=== PATIENT | male | born 1985 | race Caucasian/White ===

== ENCOUNTER 2020-02-09 17:27 | Emergency (ER) | payer SELFPAY ==
[2020-02-09] MEDS ORDERED: Lidocaine 1% with EPINEPHrine 1:100,000 20 ML MDV ONE (17:42)
[2020-02-09] MEDS ORDERED: Lidocaine 1% with EPINEPHrine 1:100,000 20 ML MDV INJECT ONE (17:50)
[2020-02-09] MEDS ORDERED: Bacitracin/Neomycin/Polymyxin B Oint 28.4 GM Tube ONE (18:35)
--- NOTE | 2020-02-09 18:48 | EDM.PDOC ---
ED HPI GENERAL MEDICAL PROBLEM - General Chief Complaint: Laceration Stated Complaint: LACERATION TO HEAD Time Seen by Provider: 02/09/20 17:34 Source of Information: Reports: Patient History Limitations: Reports: No Limitations - History of Present Illness INITIAL COMMENTS - FREE TEXT/NARRATIVE: Patient presents with laceration of forehead. He says he was prying with a pipe when it sprung back and hit him square in the forehead. It knocked him on his butt but he denies LOC, vision change, balance problem, confusion, N/V, neck pain, back pain or extremity injury. This happened about an hour ago. He called his dad who is a neurologist in [place] and they discussed signs and symptoms. His last tetanus vaccine was 2 years ago. 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 [No Known Home Meds] 02/09/20 [History] ED ROS GENERAL - Review of Systems Review Of Systems: See Below Constitutional: Denies: Fever, Chills, Malaise, Weakness HEENT: Denies: Ear Discharge, Ear Pain, Vision Change Respiratory: Denies: Shortness of Breath, Cough Cardiovascular: Denies: Chest Pain, Lightheadedness, Syncope Endocrine: Denies: Fatigue GI/Abdominal: Denies: Abdominal Pain, Diarrhea, Nausea, Vomiting : Denies: Incontinence Musculoskeletal: Denies: Neck Pain, Shoulder Pain, Arm Pain, Back Pain, Hand Pain, Leg Pain Skin: Denies: Cyanosis, Jaundice, Mottled, Pallor, Diaphoresis Neurological: Denies: Confusion, Dizziness, Headache, Numbness, Seizure, Syncope, Trouble Speaking, Difficulty Walking Psychiatric: Denies: Agitation, Anxiety, Confusion Hematologic/Lymphatic: Denies: Easy Bleeding ED EXAM, SKIN/RASH Exam: See Below Exam Limited By: No Limitations General Appearance: Alert, WD/WN, No Apparent Distress Eye Exam: Bilateral Eye: EOMI, Normal Inspection (full visual tee), PERRL Ears: Normal External Exam, Normal Canal, Hearing Grossly Normal, Normal TMs Nose: Normal Inspection, No Blood Throat/Mouth: Normal Inspection, Normal Lips, Normal Voice, No Airway Compromise Head: Normocephalic, Other (3 cm laceration of forehead above right eyebrow that is deep and gaping, bleeding slowly.) Neck: Normal Inspection, Supple, Non-Tender, Full Range of Motion. No: Tender Lateral, Tender Midline Respiratory/Chest: No Respiratory Distress, Lungs Clear, Normal Breath Sounds, No Accessory Muscle Use Cardiovascular: Regular Rate, Rhythm, No Murmur Back Exam: Normal Inspection, Full Range of Motion Extremities: Normal Inspection, Normal Range of Motion Neurological: Alert, Oriented, CN II-XII Intact, Normal Cognition, Normal Gait, No Motor/Sensory Deficits Psychiatric: Normal Affect, Normal Mood Skin: Warm, Dry, Intact, Normal Color, No Rash Location, Skin: Head ED SKIN PROCEDURES - Laceration/Wound Repair Right Forehead Appearance: Subcutaneous, Linear, Stellate (mildly at lower end), Clean Distal NVT: Neuro & Vascular Intact Anesthetic Type: Local Local Anesthesia - Lidocaine (Xylocaine): 1% with EPI Local Anesthetic Volume: 2cc Skin Prep: Chlorhexidine (Hibiciens), Providone-Iodine (Betadine), Saline Saline Irrigation (cc's): 100 Exploration/Debridement/Repair: Wound Explored Closed with: Sutures Lac/Wound length In cm: 3 Suture Size: 5-0 # of Sutures: 10 Suture Type: Nylon, Interrupted, Simple Suture Size: 4-0 # of Sutures: 2 Repaired with: Vicryl Drain Placement: No Sterile Dressing Applied: Nurse Tetanus Status Addressed: Yes Complications: No Course - Vital Signs Last Recorded V/S: Last Vital Signs Temp 97.9 F 02/09/20 17:34 Pulse 69 02/09/20 17:34 Resp 18 02/09/20 17:34 BP 137/90 02/09/20 17:34 Pulse Ox 97 02/09/20 17:34 - Orders/Labs/Meds Meds: Medications Discontinued Medications Generic Name Dose Route Start Last Admin Trade Name Freq PRN Reason Stop Dose Admin Lidocaine/Epinephrine Confirm 02/09/20 17:42 02/09/20 18:17 Xylocaine 1% With Epinephrine 1:100,000 Administered 02/09/20 17:43 Not Given Dose 20 ml .ROUTE .STK-MED ONE Lidocaine/Epinephrine 1.8 ml 02/09/20 17:50 02/09/20 17:50 Xylocaine 1% With Epinephrine 1:100,000 INJECT 02/09/20 17:51 1.8 ml ONETIME ONE Administration Neomycin/Polymyxin/Bacitracin Confirm 02/09/20 18:35 02/09/20 19:05 Triple Antibiotic Oint Administered 02/09/20 18:36 Not Given Dose 28.4 gm .ROUTE .STK-MED ONE Neomycin/Polymyxin/Bacitracin 1 gm 02/09/20 19:06 Triple Antibiotic Oint TOP 02/09/20 19:07 ONETIME ONE - Re-Assessments/Exams Free Text/Narrative Re-Assessment/Exam: 02/09/20 19:55 Discussed findings and treatment options and plan with patient. There is no evidence of intracranial injury. We discussed the option of head CT and patient would prefer not to have one unless I feel it is definitely necessary. He discussed this with his dad also, who doesn't feel it should be necessary. We discussed neurological signs/symptoms to watch for and get check [facility] if present. [place] the [employer] [place] while his co-worker drives. He wonders if he should be awakened periodically for check. Since it will be very easy to do he will have a check every 2-hours through the night. Sterile technique was used to approximate and close the forehead laceration as above. Pt tolerated the procedure well. He doesn't know if he will be in a place that he can follow up with a medical provider without difficulty for suture removal. 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 We sent a suture removal pack along with several bandages with patient. He was discharged to home in stable condition. Departure - Departure Time of Disposition: 18:38 Disposition: Home, Self-Care 01 Condition: Good Clinical Impression: Laceration of forehead without complication Qualifiers: Encounter type: initial encounter Qualified Code(s): S01.81XA - Laceration without foreign body of other part of head, initial encounter - Discharge Information Instructions: Laceration Care, Adult, [id number] Referrals: Marjorie Rosado MD [Primary Care Provider] - Forms: ED Department Discharge Additional Instructions: Keep wound clean. You may wash in shower but don't submerge in water until sutures are removed. Cover wound daily with antibiotic ointment or vaseline ointment and sterile bandage. Control swelling with ice pack 20 minutes 3 times a day and Ibuprofen 400-600 mg 2-3 times a day as needed. Follow up with medical provider for suture removal in 7-8 days. Recheck sooner if any problems or sign of infection. If any vision change, balance problem, worsening headache or other neurological change go to ER [facility]. Sepsis Event Note (ED) - Evaluation Sepsis Screening Result: No Definite Risk - Focused Exam Vital Signs: Vital Signs Temp Pulse Resp BP Pulse Ox 02/09/20 17:34 97.9 F 69 18 137/90 97
[2020-02-09] MEDS ORDERED: Bacitracin/Neomycin/Polymyxin B Oint 28.4 GM Tube TOP ONE (19:06)
== END 2020-02-09 18:55 | disposition home or self-care (01) ==
LOC: KA.ED 17:27
DX: S01.81XA Laceration without foreign body of other part of head, initial encounter (principal); W22.8XXA Striking against or struck by other objects, initial encounter
CPT/HCPCS: 12002; 12052; 99282-25; 99283